=== PATIENT | female | born 1935 | race Caucasian/White ===

== ENCOUNTER 2017-06-14 11:36 | Outpatient (CLI) | payer MEDICARE, BC | END 2017-06-14 23:59 | disposition home or self-care (01) | LOC: RAD 11:36 | DX: M51.37 Other intervertebral disc degeneration, lumbosacral region (principal); M41.86 Other forms of scoliosis, lumbar region; M47.896 Other spondylosis, lumbar region; M12.88 Other specific arthropathies, not elsewhere classified, other specified site; Z98.1 Arthrodesis status | CPT/HCPCS: 72110-TC ==

== ENCOUNTER 2019-05-28 17:48 | Emergency (ER) | payer MEDICARE, BC ==
[~2019-05-28] VITALS: Ht 165.1 cm; Wt 63.5 kg
--- NOTE | 2019-05-28 18:20 | NUR ---
BIBFRIEND, C/O LEFT KNEE SWELLING AND PAIN, S/P TRIPPED AND FALL,-KO. ON ROOM AIR, BREATHING EVENLY AND UNLABORED. WILL CONTINUE TO MONITOR ACCORDINGLY.
--- NOTE | 2019-05-28 19:44 | NUR ---
RADIOLOGY AT BEDSIDE FOR XRAY
--- NOTE | 2019-05-28 20:20 | NUR ---
Patient discharged to home in stable condition. Written and verbal after care instructions given. Patient verbalizes understanding of instruction.Pt ambulatory with a steady gait
[2019-05-28 20:21] VITALS: BP 156/79
== END 2019-05-28 20:37 | disposition home or self-care (01) ==
LOC: ER 17:49
DX: S80.02XA Contusion of left knee, initial encounter (principal); I10 Essential (primary) hypertension; W01.0XXA Fall on same level from slipping, tripping and stumbling without subsequent striking against object, initial encounter; Y93.01 Activity, walking, marching and hiking; Y92.89 Other specified places as the place of occurrence of the external cause; Y99.8 Other external cause status
CPT/HCPCS: 73564-TC

== ENCOUNTER 2019-08-14 08:24 | Emergency (ER) | payer MEDICARE, BC ==
[~2019-08-14] VITALS: Ht 165.1 cm; Wt 63.5 kg
--- NOTE | 2019-08-14 09:00 | NUR ---
patient came in to the er c/o r hip pain and swelling s/p glf last night. On room air, breathing evenly and unlabored. connected to the monitor and pulse ox. kept comfortable, will continue to monitor accordingly.
[2019-08-14] MEDS ORDERED: TRAMADOL HCL 50 MG TABLET ONE (11:48)
--- NOTE | 2019-08-14 11:54 | NUR ---
adarsh bandage applied. Patient discharged to home in stable condition. Written and verbal after care instructions given. Patient verbalizes understanding of instruction.
[2019-08-14 11:56] VITALS: BP 122/77
[2019-08-14] MEDS ORDERED: TRAMADOL HCL 50 MG TABLET PO ONE (12:00)
== END 2019-08-14 11:57 | disposition home or self-care (01) ==
LOC: ER 08:27
DX: S70.01XA Contusion of right hip, initial encounter (principal); S70.11XA Contusion of right thigh, initial encounter; I10 Essential (primary) hypertension; W01.0XXA Fall on same level from slipping, tripping and stumbling without subsequent striking against object, initial encounter; Y93.89 Activity, other specified; Y92.89 Other specified places as the place of occurrence of the external cause; Y99.8 Other external cause status
CPT/HCPCS: 72192-TC; 73502

== ENCOUNTER 2021-09-16 07:40 | Emergency (ER) | payer MEDICARE, BC ==
[~2021-09-16] VITALS: Ht 165.1 cm; Wt 71.7 kg
[2021-09-16] MEDS ORDERED: EPINEPHRINE (1:10,000) SYRINGE 1 MG/10 ML DISP.SYRIN IVP ONE ×2 (07:47)
[2021-09-16] MEDS ORDERED: SUCCINYLCHOLINE CHLORIDE 20 MG/ML VIAL IV ONE ×2 (07:47→09:00)
[2021-09-16] MEDS ORDERED: ETOMIDATE 2 MG/ML VIAL IV ONE ×2 (07:47→09:00)
--- NOTE | 2021-09-16 07:47 | NUR ---
TO ER BED 9. [id number] FROM HOME C/O MID BACK PAIN THAT RADIATES TO ABDOMEN P/S 04/20 STARTED THIS MORNING AT 6:45 WHEN PT WOKE UP, DENIES TRAUMA. DR BOATENG AT BEDSIDE.
[2021-09-16] MEDS ORDERED: MORPHINE SULFATE INJ 2 MG/ML DISP.SYRIN IV ONE (08:00)
[2021-09-16] MEDS ORDERED: IV NS 0.9% 1,000 ML BAG IV ONE (08:00)
[2021-09-16] MEDS ORDERED: ONDANSETRON HCL/PF 4 MG/2 ML VIAL IVP ONE (08:00)
[2021-09-16] MEDS ORDERED: ONDANSETRON HCL/PF 4 MG/2 ML VIAL ONE (08:01)
[2021-09-16] MEDS ORDERED: MORPHINE SULFATE INJ 4 MG/ML DISP.SYRIN ONE (08:01)
--- NOTE | 2021-09-16 08:03 | NUR ---
PT HAD A SIEZURE AT BEDSIDE, AWARE, ATIVAN WAS GIVEN. SEIZURE PRECAUTIONS APPLIED. PT MOVED TO ER BED 8.
[2021-09-16] MEDS ORDERED: LORAZEPAM INJ 2 MG/ML VIAL ONE (08:05)
[2021-09-16] MEDS ORDERED: DICL100G34 TP (08:15)
[2021-09-16] MEDS ORDERED: AMLO-212 PO (08:15)
[2021-09-16] MEDS ORDERED: LOSA100T31 PO (08:15)
--- NOTE | 2021-09-16 08:15 | NUR ---
INTUBATION WITH DR BOATENG: GIVEN 20MG ETOMIDATE AT 0816 GIVEN 80MG SUCCINYLCHOLINE 0816 FINISHED AT 0817
[2021-09-16] MEDS ORDERED: IOHEXOL-350 100 ML VIAL IV ONE (08:23)
[2021-09-16] MEDS ORDERED: CT SWABBABLE VALVE TRANS SET 1 EA INFUS.SET MC ONE (08:23)
[2021-09-16] MEDS ORDERED: IV NS 0.9% 250 ML IV ONE (08:23)
[2021-09-16] MEDS ORDERED: LORAZEPAM INJ 2 MG/ML VIAL IV ONE (08:30)
[2021-09-16] MEDS ORDERED: LEVETIRACETAM (500MG) 1,000 MG in IV NS 0.9% 100 ML IV SCH (08:30)
--- NOTE | 2021-09-16 08:30 | NUR ---
PT TAKEN TO CT VIA [facility] ACCOMPANIED BY RN AND RT
[2021-09-16] MEDS ORDERED: IOHEXOL 0 ML IV ONE (08:34)
[2021-09-16 08:37] LABS: BASOPHILS % (AUTO) 0.7 % (0.0-2.0); EOSINOPHILS % (AUTO) 2.7 % (0.0-6.0); HEMATOCRIT 38 % (33-45); HEMOGLOBIN 12.7 g/dL (11.5-14.8); LYMPHOCYTES % (AUTO) 30.9 % (20.0-44.0); MEAN CORPUSCULAR HGB CONC 33 g/dl (31.0-36.0); MEAN CORPUSCULAR VOLUME 89 fL (82-100); MONOCYTES # (AUTO) 0.4 K/uL (0.1-1.30); NEUTROPHILS # (AUTO) 3.8 K/uL (1.8-8.9); NEUTROPHILS % (AUTO) 59.7 % (43.0-81.0); PLATELET COUNT (AUTO) 212 K/uL (150-450); RED BLOOD CELL COUNT(AUTO) 4.31 MIL/uL (4.0-5.2); WHITE BLOOD COUNT (AUTO) 6.4 K/uL (4.3-11.0)
[2021-09-16 08:46] LABS: CALCIUM, SERUM 9.4 mg/dL (8.5-10.1); CARBON DIOXIDE 23 mmol/L (21-32); CHLORIDE 108 mmol/L (98-107); CREATININE 1.1 mg/dL (0.6-1.3); GLUCOSE 135 mg/dL (74-106); POTASSIUM 4.3 mmol/L (3.5-5.1); SODIUM SERUM 139 mmol/L (136-145); UREA NITROGEN, BLOOD 23 mg/dL (7-18)
--- NOTE | 2021-09-16 08:46 | NUR ---
CODE WAS CLAUDIAELD IN CT. PT WAS PULSELESS. COMPRESSIONS WERE STARTED 0848 NO PULSE EPI WAS GIVEN 0850 NO PULSE 0852 NO PULSE EPI WAS GIVEN 0854 NO PULSE 0856 PULSE, EPI GIVEN
[2021-09-16 08:55] LABS: ALANINE AMINOTRANSFERASE 22 U/L (12-78); ALBUMIN 3.4 g/dL (3.4-5.0); ALKALINE PHOSPHATASE 68 U/L (46-116); ASPARTATE AMINOTRANSFERASE 17 U/L (15-37); BILIRUBIN,DIRECT 0.1 mg/dL (0.0-0.2); BILIRUBIN,TOTAL 0.4 mg/dL (0.2-1.0); LIPASE 76 U/L (73-393); TOTAL PROTEIN, SERUM 6.6 g/dL (6.4-8.2)
[2021-09-16 09:19] VITALS: BP 58/25
--- NOTE | 2021-09-16 09:41 | NUR ---
PT PULSELESS, MD AWARE AND AT BEDSIDE.
--- NOTE | 2021-09-16 09:42 | NUR ---
PT , CALLED BY DR BOATENG
--- NOTE | 2021-09-16 09:57 | NUR ---
Dr. Tigre Torres MD (PCP)
--- NOTE | 2021-09-16 09:58 | NUR ---
CALLED [facility] AND SPOKE TO [employer] MECHANIC MARIOLA TO NOTIFY PT HAS , THEY WILL CALL BACK ONCE NEXT OF KIN HAS BEEN NOTIFIED
--- NOTE | 2021-09-16 10:03 | NUR ---
[facility] WAS CALL[facility] AND THEY WILL NOT BE ACCEPTING PATIENT.
--- NOTE | 2021-09-16 10:06 | NUR ---
Alejandrina reynoso in [facility] - 09/16/21 at [address] Tigre Torres MD ([facility])
--- NOTE | 2021-09-16 10:06 | NUR ---
Dr. Tigre Torres MD (PCP)
--- NOTE | 2021-09-16 10:11 | NUR ---
INSULATION ESTIMATOR CALLED, STATED THAT IT WILL NOT BE A CORONERS CASE.
== END 2021-09-16 10:38 ==
LOC: ER 07:46
DX: I71.1 Thoracic aortic aneurysm, ruptured (principal); I10 Essential (primary) hypertension; J94.2 Hemothorax; Z79.899 Other long term (current) drug therapy; I44.0 Atrioventricular block, first degree; Z20.822 Contact with and (suspected) exposure to COVID-19; J90 Pleural effusion, not elsewhere classified; I31.3 Pericardial effusion (noninflammatory); R56.9 Unspecified convulsions; I71.01 Dissection of thoracic aorta
CPT/HCPCS: 31500; 36415; 36556; 70496; 70498; 71275; 74174; 80048; 80076; 83690; 84484; 85025; 85730; 87426; 93005; 96365; 96375; 99291; J0171 ×2; J0330; J1953; J2060; J3490; J7030 ×2; J7050; Q9967; C9803; J2270; J2405